=== PATIENT | male | born 1990 | race Hispanic/Latino ===

== ENCOUNTER 2018-04-26 21:33 | Emergency (ER) | payer BC ==
[2018-04-26 21:51] VITALS: TEMP 98.3
--- NOTE | 2018-04-26 22:20 | ED PDOC ---
HPI: Head Injury Time Seen by Provider: 04/26/18 22:03 Chief Complaint (Nursing): Headache Chief Complaint (Provider): head injury History Per: Patient History/Exam Limitations: no limitations Injury Occurred (Timing): Days Ago: (1) Patient States: Fell Striking Head Additional Complaint(s): 27 y/o male presents for evaluation of head injury sustained last night. 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 Patient denies LOC; states he was feeling fine until 14:00 today when he started feeling "hazy" and had difficulty concentrating at work, with associated right-sided head pressure. 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 Patient denies dizziness, nausea/vomiting, vision changes, neck/back pain. Past Medical History Reviewed: Historical Data, Nursing Documentation, Vital Signs Vital Signs: Last Vital Signs Temp 98.3 F 04/26/18 21:47 Pulse 85 04/26/18 21:47 Resp 16 04/26/18 21:47 BP 147/84 04/26/18 21:47 Pulse Ox 100 04/26/18 21:47 - Medical History PMH: No Chronic Diseases - Surgical History Surgical History: No Surg Hx - Family History Family History: States: No Known Family Hx - Allergies Allergies/Adverse Reactions: Allergies Allergy/AdvReac Type Severity Reaction Status Date / Time No Known Allergies Allergy Verified 04/26/18 21:47 Review of Systems ROS Statement: Except As Marked, All Systems Reviewed And Found Negative Neurological: Positive for: Headache Physical Exam - Reviewed Nursing Documentation Reviewed: Yes Vital Signs Reviewed: Yes - Physical Exam Appears: Positive for: Well, Non-toxic, No Acute Distress Head Exam: Positive for: NORMAL INSPECTION, NORMOCEPHALIC. Negative for: ATRAUMATIC (right frontal scalp erythema/edema) Skin: Positive for: Normal Color Eye Exam: Positive for: Normal appearance, EOMI, PERRL ENT: Positive for: Normal ENT Inspection Cardiovascular/Chest: Positive for: Regular Rate, Rhythm Respiratory: Positive for: Normal Breath Sounds Gastrointestinal/Abdominal: Positive for: Normal Exam Back: Positive for: Normal Inspection Extremity: Positive for: Normal ROM Neurologic/Psych: Positive for: Alert, Oriented. Negative for: Motor/Sensory Deficits - ECG O2 Sat by Pulse Oximetry: 100 - Progress ED Course And Treament: labs, CT head EXAM: CT Head Without Intravenous Contrast CLINICAL HISTORY: 27 years old, male; Injury or trauma; Fall; Initial encounter; Concussion / head injury; Without loss of consciousness TECHNIQUE: Axial computed tomography images of the head/brain without intravenous contrast. All CT scans at this facility use at least one of these dose optimization techniques: automated exposure control; mA and/or kV adjustment per patient size (includes targeted exams where dose is matched to clinical indication); or iterative reconstruction. COMPARISON: No relevant prior studies available. FINDINGS: Brain: Unremarkable. No hemorrhage. No significant white matter disease. No edema. Ventricles: Unremarkable. No ventriculomegaly. Bones/joints: Unremarkable. No acute fracture. Soft tissues: Unremarkable. Sinuses: Patchy opacification of the ethmoid air cells bilaterally. Mastoid air cells: Unremarkable as visualized. No mastoid effusion. IMPRESSION: No acute findings. Patient educated on findings, discharged with instructions to follow up with PMD in 2-3 days. Advised Tylenol PRN pain Rest Return precautions given Disposition - Clinical Impression Clinical Impression: Head injury - Patient ED Disposition Is Patient to be Admitted: No Counseled Patient/Family Regarding: Studies Performed, Diagnosis, Need For Followup - Disposition Disposition: Routine/Home Disposition Time: 23:25 Condition: STABLE Instructions: Minor Head Injury, Concussion in Adults Forms: [employer] ([place]), [facility] ED School/Work Excuse
[2018-04-26 23:54] VITALS: BP 113/77; PULSE 73; RESP 18; O2SAT 96
--- NOTE | 2018-04-27 10:41 | CT ---
Date of service: 04/26/2018 PROCEDURE: CT HEAD WITHOUT CONTRAST. HISTORY: head injury COMPARISON: None available. TECHNIQUE: Axial computed tomography images were obtained through the head/brain without intravenous contrast. Radiation dose: Total exam DLP = 1709.9 mGy-cm. This CT exam was performed using one or more of the following dose reduction techniques: Automated exposure control, adjustment of the mA and/or kV according to patient size, and/or use of iterative reconstruction technique. FINDINGS: HEMORRHAGE: No intracranial hemorrhage. BRAIN: No mass effect or edema. No atrophy or chronic microvascular ischemic changes. VENTRICLES: Unremarkable. No hydrocephalus. CALVARIUM: Unremarkable. PARANASAL SINUSES: Unremarkable as visualized. No significant inflammatory changes. MASTOID AIR CELLS: Unremarkable as visualized. No inflammatory changes. OTHER FINDINGS: None. IMPRESSION: No evidence of acute intracranial hemorrhage intracranial collection mass effect or midline shift. Preliminary report was submitted by [facility].
== END 2018-04-26 23:53 | disposition home or self-care (01) ==
LOC: H.ER 21:33
DX: S09.90XA Unspecified injury of head, initial encounter (principal); W01.0XXA Fall on same level from slipping, tripping and stumbling without subsequent striking against object, initial encounter